=== PATIENT | female | born 1975 | race Caucasian/White ===

== ENCOUNTER 2016-10-20 12:03 | Emergency (ER) | payer OTHER ==
[~2016-10-20] VITALS: Ht 170.2 cm; Wt 81.5 kg
[2016-10-20 12:10] VITALS: TEMP 36.9; Ht 170.2 cm; Wt 81.5 kg
--- NOTE | 2016-10-20 13:09 | DIAGNOSTIC IMAGING REPORT ---
LEFT WRIST 5 VIEWS HISTORY: left wrist pain after fall COMPARISON: None. FINDINGS: There is a comminuted and impacted distal left radius fracture which demonstrates mild dorsal angulation. The fracture extends to the articular surface. No dislocation. Diffuse soft tissue swelling. The distal ulna and carpal bones appear intact. No radiopaque foreign bodies. IMPRESSION: Left distal radius fracture as described above. Electronically signed by: Chance Hopper M.D. 10/20/2016 1:08 PM Dictated Date/Time: 10/20/2016 1:07 PM
--- NOTE | 2016-10-20 13:24 | EMERGENCY ROOM VISIT NOTE ---
History First contact with patient: 13:11 Chief Complaint: WRIST PAIN Stated Complaint: BROKEN WRIST History of Present Illness The patient is a 41 year old female who presents to the Emergency Room with complaints of fall. The patient states that she was walking outside of her house on the deck which was slippery at 9:30 this morning and slipped and fell backwards onto an outstretched left arm. She states she also landed on her buttocks and complains of coccyx pain. The patient rates her discomfort a 9/ 10. She reports the worst pain is in the left distal radius. She denies any numbness, tingling, weakness. She reports pain in the coccyx. She denies any low back pain. She denies any numbness, pain, tingling in the extremities. She did not strike her head or have loss of consciousness. She denies any nausea or vomiting. The patient lives approximately 2 hours away but was in the area for an appointment. Review of Systems A 10 system review of systems was completed with positives and pertinent negatives listed in the HPI. Past Medical/Surgical History Medical Problems: (1) Muscular dystrophy Social History Smoking Status: Never Smoker Marital Status: Housing Status: lives with family Current/Historical Medications Scheduled PRN Oxycodone/Acetaminophen 5MG/325MG (Percocet 5MG/325MG), 1-2 TABS PO Q4 PRN for Pain Allergies Coded Allergies: Amoxicillin (Unverified Allergy, Unknown, GI UPSET, 10/20/16) Clavulanic Acid (Unverified Allergy, Unknown, GI UPSET, 10/20/16) Gabapentin (Unverified Allergy, Unknown, , 10/20/16) Physical Exam Vital Signs Date Time Temp Pulse Resp B/P Pulse Ox O2 Delivery O2 Flow Rate FiO2 10/20/16 14:09 80 16 111/74 97 Room Air 10/20/16 12:10 36.9 77 18 120/75 96 Room Air Physical Exam VITALS: Vitals are noted on the nurse's note and reviewed by myself. Vital signs stable. The patient is afebrile. GENERAL this is a 41-year-old female, in no acute distress, nondiaphoretic, well -developed well-nourished. SKIN: There is edema and tenderness to the left distal radius. There are no open areas. There is no tenting of the skin. Capillary reflex less than 2 seconds. HEAD: Normocephalic atraumatic. EARS: The external ears are normal in appearance. EYES: Pupils equal round and reactive to light and accommodation. Conjunctivae without injection, sclerae without icterus. Extraocular movements intact. NOSE: Patent, turbinates without inflammation or discharge. MOUTH: Mucous membranes moist. Tongue does not deviate. NECK: Supple without nuchal rigidity. No lymphadenopathy. No thyromegaly. Cervical spine is nontender. No JVD. HEART: Regular rate and rhythm without murmurs gallops or rubs. LUNGS: Clear to auscultation bilaterally without wheezes, rales or rhonchi.No retractions or accessory muscle use. MUSCULOSKELETAL: Decreased range of motion, minimal deformity, ecchymosis, edema and tenderness to the left distal radius. There is no open areas. The remaining extremities are unremarkable. There is tenderness to palpation over the coccyx. There is no tenderness over the lumbar or thoracic spine. NEURO: Patient was alert and oriented to person place and time. Normal sensation to light and sharp touch. No focal neurological deficits. Medical Decision & Procedures ER Provider Diagnostic Interpretation: SACRUM AND COCCYX 3 VIEWS CLINICAL HISTORY: Fall with sacrococcygeal pain. FINDINGS: 3 views of the sacrum and coccyx are obtained. No prior studies are available for comparison at the time of dictation. The skeletal structures are well mineralized. There is no radiographic evidence of sacral or coccygeal fracture. The sacroiliac joints show mild degenerative sclerosis. Lumbosacral spondylosis is partially imaged. Surgical clips and an intrauterine device are noted in the pelvis. There is a nonobstructed abdominal bowel gas pattern. IMPRESSION: There is no radiographic evidence of sacrococcygeal fracture. LEFT WRIST 5 VIEWS HISTORY: left wrist pain after fall COMPARISON: None. FINDINGS: There is a comminuted and impacted distal left radius fracture which demonstrates mild dorsal angulation. The fracture extends to the articular surface. No dislocation. Diffuse soft tissue swelling. The distal ulna and carpal bones appear intact. No radiopaque foreign bodies. IMPRESSION: Left distal radius fracture as described above. Medications Administered Medications (Trade) Dose Ordered Sig/Jasmin Route Start Time Stop Time Status Last Admin Dose Admin Oxycodone/ Acetaminophen (Percocet 5-325mg Tab) 1 tab NOW ONCE PO 10/20/16 13:30 10/20/16 13:31 DC 10/20/16 14:09 1 TAB ED Course The patient was seen and examined. Previous visits were reviewed. The patient sustained a mechanical fall earlier today. She has a distal radius fracture. There is minimal displacement. I discussed the case with Dr. De La Cruz who reviewed the films. He felt that she would be stable for splinting and follow- up with orthopedics. She is not from this area and states she will follow up with [facility]. Coccyx x-ray does not reveal any obvious fracture She was placed in an Ortho-Glass sugar tong splint by the emergency department property maintenance technician and the position was checked 3. She was given a sling. She was given a prescription for Percocet. She should contact orthopedics first thing in the morning to schedule a follow-up appointment for further evaluation and management. She should return with any worsening symptoms. Medical Decision The differential diagnosis includes extremity fracture, sprain, contusion, coccyx fracture, among others [place] Drug Monitoring Program Search Results: patient reviewed within database, no issues identified Impression Primary Impression: Fracture of left distal radius Additional Impression: Coccyx contusion Departure Information Dispostion Home / Self-Care Condition GOOD Prescriptions Oxycodone/Acetaminophen 5MG/325MG (PERCOCET 5MG/325MG) Tab 1-2 TABS PO Q4 Y for Pain, #36 TAB For Initial Treatment Prov: Janeen Geller, JUAN MIGUEL 10/20/16 Referrals No Doctor, Assigned (PCP) Tyler De La Cruz, DO Patient Instructions ED Fx Forearm Radius Ulna No Redu Requ, My [facility] [place] [employer] Additional Instructions Ibuprofen 600 mg every 6-8 hours for moderate pain Percocet 1-2 tablet every 4-6 hours as needed for worse pain. No driving or alcohol use with Percocet and do not take with Tylenol. Wear the splint until seen by orthopedics, do not get the splint wet Contact an orthopedic doctor in the area first thing in the morning for a follow -up appointment Return with any worsening symptoms Problem Qualifiers
[2016-10-20] MEDS ORDERED: OXYCODONE/ACETAMINOPHEN 5-325 TAB PO ONE (13:30)
[2016-10-20 14:09] VITALS: BP 111/74; PULSE 80; O2SAT 97
[2016-10-20] MEDS ORDERED: OXYC-57 PO (14:45)
--- NOTE | 2016-10-20 14:45 | DIAGNOSTIC IMAGING REPORT ---
SACRUM AND COCCYX 3 VIEWS CLINICAL HISTORY: Fall with sacrococcygeal pain. FINDINGS: 3 views of the sacrum and coccyx are obtained. No prior studies are available for comparison at the time of dictation. The skeletal structures are well mineralized. There is no radiographic evidence of sacral or coccygeal fracture. The sacroiliac joints show mild degenerative sclerosis. Lumbosacral spondylosis is partially imaged. Surgical clips and an intrauterine device are noted in the pelvis. There is a nonobstructed abdominal bowel gas pattern. IMPRESSION: There is no radiographic evidence of sacrococcygeal fracture. Electronically signed by: Fahad Martines M.D. 10/20/2016 2:44 PM Dictated Date/Time: 10/20/2016 2:43 PM
== END 2016-10-20 15:00 | disposition home or self-care (01) ==
LOC: C.EDB 12:05 → C.EDD 15:00
DX: S52.502A Unspecified fracture of the lower end of left radius, initial encounter for closed fracture (principal); S30.0XXA Contusion of lower back and pelvis, initial encounter; W01.0XXA Fall on same level from slipping, tripping and stumbling without subsequent striking against object, initial encounter; Y92.019 Unspecified place in single-family (private) house as the place of occurrence of the external cause; G71.0 Muscular dystrophy; Z88.1 Allergy status to other antibiotic agents; Z88.8 Allergy status to other drugs, medicaments and biological substances